=== PATIENT | female | born 1965 | race Caucasian/White ===

== ENCOUNTER → 2017-01-24 | Outpatient (CLI) | payer MEDICARE, OTHER ==
[~2017-01-24] MED LIST: ALPR1TAB2 PO; ATOR10TA PO; CYCL10TA2 PO; DULO20CA PO; GABA-586 PO; HYDR-965 PO; IOHEXOL 180 MG/ML 10 ML VIAL. ONE; NAPR220T70 PO; TAPE75TA3 PO; methylPREDNISolone ACETATE 40 MG/ML VIAL. ONE; methylPREDNISolone ACETATE 80 MG/ML VIAL. ONE
--- NOTE | 2017-01-25 04:30 | PAIN ---
DATE OF SERVICE: 01/24/2017 DIAGNOSIS: Lumbar radiculopathy with lumbar degenerative disk disease. HISTORY OF PRESENT ILLNESS: The patient, a 52-year-old female, returns for followup status post previous lumbar epidural steroid injection as well as thoracic epidural steroid injection, last seen in July. The patient reports that she did very well since that time, a near 100% improvement after her injections, but the pain is returning now over the past 6-8 months or so, worse over the past 2 months, increasing in the low back, bilateral hips and into the posterior left lateral thigh, posterior and lateral calf, medial calf, into the posterior ankle and foot on the left side. The patient reports it is worse with walking and standing, change in positions, about a 7 on a scale of 10 on average. Can be as low as 4, but it can be as high as a 9. The patient reports it is a 7 on a scale of 10 today. The patient reports no new motor or sensory deficits, no new bowel or bladder incontinence or other complaints. Describes the pain as aching and shooting, again worse with standing and walking, better with lying down. She is sleeping about 8 hours a night, unfortunately can awaken her from sleep but not every night. She usually can reposition and get back to sleep without too much difficulty. The patient has not had any recent physical therapies. She has been doing some pool therapy on her own and some stretching as well, which has been helpful also. The patient reports no bowel or bladder incontinence but significant fatigability of the left lower extremity with walking and standing, better with sitting and again better with lying down. PAST MEDICAL HISTORY: Significant for gastroesophageal reflux, osteoarthritis and smoking. PREVIOUS SURGERIES: Include right foot bunionectomy, right shoulder acromioplasty and hysterectomy. CURRENT MEDICATIONS: Cyclobenzaprine, Lipitor, Nucynta, Cymbalta and gabapentin. ALLERGIES: THE PATIENT IS ALLERGIC TO MELOXICAM. SOCIAL HISTORY: She is currently retired, smokes about 1 pack of cigarettes per day. Occasional alcohol intake only socially. REVIEW OF SYSTEMS: Updated and is positive for those items mentioned in the history of present illness. All systems were reviewed and otherwise negative and well documented on the patient's chart. PHYSICAL EXAMINATION: VITAL SIGNS: The patient's blood pressure is 144/92, pulse 83, respirations are 18, temperature is 98.2 degrees Fahrenheit, height is 5 feet 7 inches, weight is 196 pounds. GENERAL: The patient is awake, alert, oriented, appropriate, very pleasant demeanor. HEENT: Head shows normocephalic and atraumatic. Extraocular movements are intact and symmetrical. Oral cavity shows mucous membranes are moist and pink. Dentition is intact. NECK: Shows anterior throat supple without palpable lymphadenopathy noted. Swallow reflex is symmetrical. CHEST: Shows normal with inspection. Breath sounds are clear to auscultation bilaterally. HEART: Shows S1 and S2 clear. No murmurs auscultated. ABDOMEN: Soft, nontender, nondistended. No palpable organomegaly. No rebound or guarding demonstrated. BACK: Shows spine grossly midline. Normal-appearing cervical lordotic curvature, thoracic kyphotic curvature and lumbar lordotic curvature. No previous bruises, lesions, rashes or scars are noted. Lumbar paraspinous musculature shows symmetrical with inspection. On palpation, it shows a firm, tender musculature throughout the upper, middle and lower distribution of the paraspinous muscles bilaterally, worse in the low lumbar distribution and slightly more tender in the low lumbar distribution on the left than the right. The patient shows good rotation of motion, however, both laterally greater than 10 degrees right and left as well as extension greater than 10 degrees, forward flexion 45 degrees without difficulty. EXTREMITIES: Lower extremities show deep tendon reflexes at 2+ in the patellar, 1+ in the tendo calcaneus tendons and are equal. Motor exam is strong with dorsiflexion, extension, quadriceps and hamstring flexion rated at 5/5 and equal bilaterally. Peripheral pulses are 1+ posterior tibial and dorsalis pedis pulses. No peripheral edema is noted. No clubbing, no cyanosis. Lower extremities are warm and dry to touch and equal in color and appearance. Options were discussed with the patient. Again, the patient's old chart was reviewed as her current medication regimen updated. Current review of systems updated as noted, and we will proceed with a lumbar epidural steroid injection as she has done very well with these in the past with similar symptoms. Risks were again discussed including but not limited to bleeding, infection, possibility of epidural hematoma and subsequent neurological compromise, dural puncture, headaches, spinal cord and/or nerve damage, side effects of steroid medication and poor results regarding pain control. The patient understands and wishes to proceed. The patient will return to clinic in approximately 2 weeks for followup and was counseled on return appointment, activity level and side effects to be aware of. DIAGNOSIS: Lumbar radiculopathy with lumbar degenerative disk disease. PROCEDURES: Lumbar epidural steroid injection in translaminar approach at the L5-S1 level using a C-arm fluoroscopic guidance under sterile prep and drape using local anesthetic. Medication injected was total of 120 mg of Depo-Medrol plus 10 mL of preservative-free normal saline and 2 mL of Isovue contrast. CONDITION AT DISCHARGE: Stable. The patient tolerated the procedure well and had no complications. ALYSIA ALVAREZ MD DR: JEANETTE/jesenia JOB#: [id number] / [id number]
== END | disposition home or self-care (01) ==
LOC: PNCL 13:20
PROVIDERS: ATTEND Anesthesiology
DX: M51.16 Intervertebral disc disorders with radiculopathy, lumbar region (principal); K21.9 Gastro-esophageal reflux disease without esophagitis; M19.91 Primary osteoarthritis, unspecified site; F17.200 Nicotine dependence, unspecified, uncomplicated; Z88.6 Allergy status to analgesic agent; Z72.89 Other problems related to lifestyle
CPT/HCPCS: 62323; J1030; J1040

== ENCOUNTER → 2017-02-07 | Outpatient (CLI) | payer MEDICARE ==
[~2017-02-07] MED LIST changes: +ESOM40CA PO; +GABA-587 PO; +TAPE100T9 PO
--- NOTE | 2017-02-07 13:51 | PAIN ---
DATE OF SERVICE: 02/07/2017 DIAGNOSES: 1. Lumbar radiculopathy with lumbar degenerative disk disease. 2. Thoracic degenerative disk disease. 3. Cervical radiculopathy, cervical degenerative disease and cervical post-laminectomy syndrome. HISTORY OF PRESENT ILLNESS: The patient is a 52-year-old female who returns for followup status post lumbar epidural steroid injection x 1. The patient reports about 60% improvement overall, still some pain in the low back and left leg, but much improved, not going down the leg all the way at this time, it is just into the thigh and the calf, to a mild extent in the posterior knee. The patient reports it is 7 on a scale of 10 on average. It can be as high as an 8 or 9 but is 2-3 on a scale of 10 today. The patient reports it is returning now, becoming more constant with a cramping sensation, as aching and shooting in the left leg. Worse with activity, standing, walking; better with sitting or lying down. The patient reports she sleeps at night, is not having difficulty with this, only when she is up and around when she is having the pain for the most part. The patient reports no new motor or sensory deficits, no new bowel or bladder incontinence or other complaints. PHYSICAL EXAMINATION: VITAL SIGNS: Today the patient's blood pressure is 149/99, pulse 83, respirations 18, temperature 98.4 degrees Fahrenheit, height is 5 feet 7 inches, weighs 196 pounds. GENERAL: The patient is awake, alert, oriented, appropriate, very pleasant demeanor. HEENT: Head shows normocephalic, atraumatic. Extraocular movements are intact, symmetrical. Oral cavity: Mucous membranes moist and pink. Dentition is intact. NECK: Shows anterior throat supple without palpable lymphadenopathy noted. Swallow reflex is symmetrical. CHEST: Shows normal on inspection. Breath sounds clear to auscultation bilaterally. HEART: Shows S1 and S2 clear. ABDOMEN: Soft, nontender, nondistended. No palpable organomegaly. There is no rebound or guarding demonstrated. BACK: Shows spine grossly in midline with normal appearing thoracic kyphosis and lumbar lordotic curvature. The patient's lumbar paraspinous muscle shows some moderate tenderness with palpation bilaterally, but only diffusely without atrophy, hypertrophy. The patient shows good rotational motion of the lumbar spine, both laterally as well as extension and flexion. LOWER EXTREMITIES: Showed deep tendon reflexes 2+ in the patellar, 1+ tendo-calcaneus tendons and are equal. Motor exam is strong with 5/5 dorsiflexion, extension, quadriceps, hamstring flexion and symmetrical. Options were discussed with the patient and the patient's old chart was reviewed as her current medication regimen updated. Current review of systems updated today as well. We will proceed with a second lumbar epidural steroid injection today with fluoroscopic guidance. Risks were again discussed including, but not limited to bleeding, infection, possibility of epidural hematoma and subsequent neurologic compromise, dural puncture, headaches, spinal cord and/or nerve damage, side effects of steroid medication and poor results regarding pain control. The patient understands and wishes to proceed. The patient will return to clinic in approximately 2 weeks for followup. She was counseled on return appointment, activity level and side effects to be aware of. DIAGNOSES: Lumbar radiculopathy with lumbar degenerative disk disease. PROCEDURE: Lumbar epidural steroid injection in translaminar approach at the L5-S1 level using fluoroscopic guidance under sterile prep and drape using local anesthetic. MEDICATION INJECTED: A total of 120 mg of Depo-Medrol plus 10 mL of preservative-free normal saline and 2 mL Isovue for contrast. CONDITION AT DISCHARGE: Stable. The patient tolerated procedure well and had no complications. ALYSIA ALVAREZ MD DR: JEANETTE/jesenia JOB#: [id number] / [id number]
== END | disposition home or self-care (01) ==
LOC: PNCL 13:07
PROVIDERS: ATTEND Anesthesiology
DX: M51.16 Intervertebral disc disorders with radiculopathy, lumbar region (principal); M50.10 Cervical disc disorder with radiculopathy, unspecified cervical region; M96.1 Postlaminectomy syndrome, not elsewhere classified; M51.34 Other intervertebral disc degeneration, thoracic region; Z88.6 Allergy status to analgesic agent
CPT/HCPCS: 62323; J1030; J1040

== ENCOUNTER → 2017-02-21 | Outpatient (CLI) | payer MEDICARE ==
[~2017-02-21] MED LIST changes: +LIDOCAINE/PRILOCAINE TOPICAL CREAM 5GM TUBE. TP ONE
--- NOTE | 2017-02-21 12:17 | PAIN ---
DATE OF SERVICE: 02/21/2017 DIAGNOSES: 1. Lumbar radiculopathy with lumbar degenerative disk disease. 2. Thoracic radiculopathy. 3. Cervical radiculopathy with cervical degenerative disk disease. HISTORY OF PRESENT ILLNESS: The patient is a 52-year-old female who returns for followup status post lumbar epidural steroid injection x 2, last seen on 02/07/2017. The patient reports she did very well with about a 70% improvement in her low back and left lower extremity pain, but the pain is returning now only over the past few days, radiating, burning, cramping, aching, rated at 8 on a scale of 10 at all times, worst or the least. The patient reports it is worse with standing, walking, changing positions. She and her were remodeling a bathroom at home. This seems to have exacerbated the pain to some extent as she had been on her feet quite a bit during the remodeling. The patient reports she feels better with sitting down or lying down, sleeping 8 hours a night without disturbing her sleep. The patient reports no new motor or sensory deficits. No new bowel or bladder incontinence or other complaints. PHYSICAL EXAMINATION: VITAL SIGNS: Today, the patient's blood pressure 137/97, pulse 79, respirations are 18, temperature 97.4 degrees Fahrenheit, height is 5 feet 7 inches, weighs 196 pounds. GENERAL: The patient is awake, alert, oriented, appropriate, very pleasant demeanor. HEENT: Shows atraumatic and normocephalic. Extraocular movements are intact and symmetrical. Oral cavity shows mucous membranes are moist and pink. Dentition is intact. NECK: Shows anterior throat supple without palpable lymphadenopathy noted. Swallow reflex is symmetrical. CHEST: Shows normal on inspection. Breath sounds are clear to auscultation bilaterally. HEART: Shows S1 and S2 clear. No murmurs auscultated. ABDOMEN: Soft, nontender, nondistended. No palpable organomegaly is noted. BACK: Shows spine grossly midline. Cervical paraspinous musculature shows some mild tenderness with palpation, but only diffusely in the low cervical distribution and the superior medial trapezius, but full rotation and motion of the cervical spine without difficulty. Lumbar spine shows symmetrical on inspection. Palpation shows some mild tenderness in the lumbar paraspinous musculature bilaterally, but only diffusely without radiation. The patient has good rotation and motion of the lumbar spine, both laterally greater than 10 degrees right and left as well as extension greater than 10 degrees, forward flexion 45 degrees without pain reported. No tenderness over the sacrum or sacroiliac regions. EXTREMITIES: Lower extremities show deep tendon reflexes 2+ in the patellar, 1+ tendo calcaneus tendons, are equal. Motor exam is strong with 5/5 dorsiflexion, extension, quadriceps and hamstring flexion and are symmetrical. Peripheral pulses are 1+ posterior tibial. No peripheral edema is noted. Options were discussed with the patient. The patient's old chart was reviewed as her current medication regimen and updated. Current review of systems updated today as well. We will proceed with third in the series of lumbar epidural steroid injection with fluoroscopic guidance. Risks were again discussed including, but not limited to bleeding, infection, possibility of epidural hematoma, subsequent neurologic compromise, dural punctures, headaches, spinal cord and/or nerve damage, side effects of steroid medication and poor results regarding pain control. The patient understands and wished to proceed. The patient will return to clinic in approximately 2 weeks for followup, was counseled on return appointment, activity level and side effects to be aware of. DIAGNOSIS: Lumbar radiculopathy with lumbar degenerative disk disease. PROCEDURE: Lumbar epidural steroid injection, translaminar approach at L5-S1 level using C-arm fluoroscopic guidance under sterile prep and drape using local anesthetic. Medication injected is a total of 120 mg Depo-Medrol plus 10 mL of preservative-free normal saline, 2 mL of Isovue for contrast. CONDITION ON DISCHARGE: Stable. The patient tolerated the procedure well, had no complications. ALYSIA ALVAREZ MD DR: JEANETTE/jesenia JOB#: [id number] / [id number]
== END | disposition home or self-care (01) ==
LOC: PNCL 11:15
PROVIDERS: ATTEND Anesthesiology
DX: M51.16 Intervertebral disc disorders with radiculopathy, lumbar region (principal); M50.10 Cervical disc disorder with radiculopathy, unspecified cervical region; M54.14 Radiculopathy, thoracic region; Z88.6 Allergy status to analgesic agent
CPT/HCPCS: 62323; J1030; J1040

== ENCOUNTER → 2017-04-09 | Outpatient (CLI) | payer MEDICARE ==
[~2017-04-09] MED LIST changes: -IOHEXOL 180 MG/ML 10 ML VIAL. ONE; -LIDOCAINE/PRILOCAINE TOPICAL CREAM 5GM TUBE. TP ONE; -methylPREDNISolone ACETATE 40 MG/ML VIAL. ONE; -methylPREDNISolone ACETATE 80 MG/ML VIAL. ONE
--- NOTE | 2017-04-10 08:35 | KCIC ---
EXAMINATION: Magnetic resonance imaging (MRI) of the lumbar spine without contrast HISTORY: Left lumbar radiculopathy TECHNIQUE: Multiplanar multi-weighted MRI of the lumbar spine was performed without intravenous contrast using the standard lumbar spine protocol. Contrast information: None administered COMPARISON: None available. FINDINGS: There is minimal anterolisthesis of L4 and L5. Vertebral bodies demonstrate normal signal intensity on all sequences. There are no compression fractures. The conus medullaris terminates at the level of L1. The distal spinal cord signal intensity is normal. There is disc desiccation at L4-L5 and L5-S1. There is disc height loss at L5-S1. Limited views of the abdomen and pelvis show no soft tissue abnormality. The aorta is normal. L2-L3: The disc is normal in configuration. There is mild facet arthropathy. There is no neuroforaminal stenosis. There is no spinal canal stenosis. L3-L4: The disc is normal in configuration. There is mild to moderate facet arthropathy. There is no neuroforaminal stenosis. There is no spinal canal stenosis. L4-L5: There is a mild circumferential disc bulge. There is severe facet arthropathy with ligamentum flavum infolding. There is a 10 x 8 mm synovial cyst projecting anteriorly from the left facet joint. There is nodular infolding of ligamentum flavum on the left which results in deformity of the thecal sac along the left lateral margin as well as severe left lateral recess stenosis, impinging the traversing left L5 nerve. There is moderate neuroforaminal stenosis. There is severe spinal canal stenosis. L5-S1: There is a small central disc protrusion. There is moderate facet arthropathy. There is [id number] left neuroforaminal stenosis. There is no spinal canal stenosis. IMPRESSION: There is mild circumferential disc bulge at L4-L5 along with severe facet arthropathy and ligamentum flavum infolding. There is a 10 x 8 mm synovial cyst arising from the left facet joint which projects anteriorly and medially. Constellation of findings along with nodular infolding of the ligamentum flavum on the left results in severe left lateral recess stenosis, impinging on the left L5 nerve. Findings result in severe spinal canal stenosis. Electronically signed by: Mamta Healy MD (04/10/2017 8:32 AM) [id number]
== END | disposition home or self-care (01) ==
LOC: KCIC MRI 17:19
PROVIDERS: ATTEND Anesthesiology
DX: M54.16 Radiculopathy, lumbar region (principal); M48.061 Spinal stenosis, lumbar region without neurogenic claudication; Z88.6 Allergy status to analgesic agent
CPT/HCPCS: 72148

== ENCOUNTER → 2017-05-02 | Outpatient (CLI) | payer MEDICARE | END | disposition home or self-care (01) | LOC: KCIC 11:03 | DX: M43.16 Spondylolisthesis, lumbar region (principal); M51.37 Other intervertebral disc degeneration, lumbosacral region; M79.605 Pain in left leg; R53.1 Weakness | CPT/HCPCS: 72100 ==

== ENCOUNTER → 2017-05-28 | Outpatient (CLI) | payer MEDICARE ==
[2017-05-28 14:40] LABS: ADD MAN DIFF? NO
[2017-05-28 14:42] LABS: BASO % 1 % (0-3); EOS # 0.1 x10^3/uL (0.0-0.7); EOS % 2 % (0-3); HEMOGLOBIN 13.1 g/dL (12.0-15.5); LYMPH # 1.8 x10^3/uL (1.0-4.8); LYMPH % 27 % (24-48); MEAN CORPUSCULAR HEMOGLOBIN 29 pg (25-35); MEAN CORPUSCULAR HGB CONC 33 g/dL (31-37); MEAN CORPUSCULAR VOLUME 88 fL (79-100); MONO # 0.5 x10^3/uL (0.0-1.1); MONO % 7 % (0-9); NEUT # 4.3 x10^3uL (1.8-7.7); NEUT % 64 % (31-73); PLATELET COUNT 200 x10^3/uL (140-400); RED BLOOD COUNT 4.56 x10^6/uL (3.50-5.40); RED CELL DISTRIBUTION WIDTH 13.6 % (11.5-14.5); WHITE BLOOD COUNT 6.6 x10^3/uL (4.0-11.0)
[2017-05-28 15:07] LABS: ALBUMIN 4.3 g/dL (3.4-5.0); ALBUMIN/GLOBULIN RATIO 1.4 (1.0-1.7); ALK PHOS 59 U/L (46-116); ALT (SGPT) 27 U/L (14-59); ANION GAP 9 (6-14); AST (SGOT) 18 U/L (15-37); BLOOD UREA NITROGEN 21 mg/dL (7-20); BUN/CREATININE RATIO 30 (6-20); CALCIUM 9.6 mg/dL (8.5-10.1); CARBON DIOXIDE 26 mmol/L (21-32); CHLORIDE 104 mmol/L (98-107); CREATININE 0.7 mg/dL (0.6-1.0); GFR 87.2; GLUCOSE 97 mg/dL (70-99); SODIUM 139 mmol/L (136-145); TOTAL BILIRUBIN 0.3 mg/dL (0.2-1.0); TOTAL PROTEIN 7.4 g/dL (6.4-8.2)
[2017-05-29 00:12] LABS: MRSA BY PCR Negative (Negative)
== END | disposition home or self-care (01) ==
LOC: SURGPAT 13:32
DX: Z01.818 Encounter for other preprocedural examination (principal); M48.061 Spinal stenosis, lumbar region without neurogenic claudication; M71.38 Other bursal cyst, other site
CPT/HCPCS: 36415; 80053; 85025; 87641

== ENCOUNTER 2017-06-06 10:26 | Day surgery (SDC) | payer MEDICARE ==
[~2017-06-06 10:26] MED LIST changes: +0.9 % SODIUM CHLORIDE 50 ML VIAL. IJ; -ALPR1TAB2 PO; -ATOR10TA PO; -CYCL10TA2 PO; +DESFLURANE > 120 MINUTES IH; +DEXAMETHASONE SOD PHOS 20 MG/5 ML VIAL.; -DULO20CA PO; -ESOM40CA PO; -GABA-586 PO; -GABA-587 PO; +GLYCOPYRROLATE 1 MG/5 ML VIAL.; -HYDR-965 PO; +HYDROmorphone 2 MG/ML VIAL IV; +LIDOCAINE 1% PF 2 ML VIAL. ID; +LIDOCAINE 2% PF Vial for OR 5 ML VIAL.; +MIDAZOLAM HCL/PF 2 MG/2 ML VIAL.; +MINERAL OIL/PETROLATUM,WHITE OPHTH OINT 3.5GM TUBE.; +MORPHINE SULFATE 2 MG/ML DISP.SYRIN. IV; -NAPR220T70 PO; +NEOSTIGMINE METHYLSULFATE 5 MG/5 ML SYRINGE.; +ONDANSETRON PF 4 MG/2 ML VIAL.; +ONDANSETRON PF 4 MG/2 ML VIAL. IV; +PHENYLEPHRINE 10 MG/ML VIAL.; +PROCHLORPERAZINE 10 MG/2 ML VIAL. IV; +PROPOFOL 20 ML IV; +PROPOFOL 50 ML IV; +REMIFENTANIL 2 MG VIAL. IV; +ROCURONIUM 50 MG/5 ML VIAL.; -TAPE100T9 PO; -TAPE75TA3 PO; +fentaNYL PF VIAL 100 MCG/2 ML VIAL; +fentaNYL PF VIAL 100 MCG/2 ML VIAL IV
[2017-06-06] MEDS: IV RINGERS,LACTATED 1000ML 1,000 ML IV ×3 (10:54)
[2017-06-06] MEDS: GELATIN SPONGE SIZE 100. ×3 (12:49)
[2017-06-06] MEDS: THROMBIN TOPICAL 20,000 UNIT SPRAY.SYRN KIT TP ×3 (12:49)
[2017-06-06] MEDS: BACITRACIN 50,000 UNIT in IV NORMAL SALINE 1000ML BAG 1,000 ML IRR ×3 (12:49)
[2017-06-06] MEDS: KETOROLAC 60 MG/2 ML INJ FOR OR. ×3 (12:49)
[2017-06-06] MEDS: BUPIVAC MPF-EPI 0.75%-1:200000 30 ML VIAL. ×3 (12:49)
[2017-06-06] MEDS ORDERED: PROPOFOL 50 ML IV ×3 (13:00)
== END 2017-06-06 16:32 | disposition home or self-care (01) ==
LOC: OPSVCIP 10:26 → SURG 15:40
DX: M71.38 Other bursal cyst, other site (principal); M48.061 Spinal stenosis, lumbar region without neurogenic claudication; M54.16 Radiculopathy, lumbar region; E78.00 Pure hypercholesterolemia, unspecified; K21.9 Gastro-esophageal reflux disease without esophagitis; M19.90 Unspecified osteoarthritis, unspecified site; F41.9 Anxiety disorder, unspecified; F32.9 Major depressive disorder, single episode, unspecified; Z86.69 Personal history of other diseases of the nervous system and sense organs; Z72.89 Other problems related to lifestyle; Z90.710 Acquired absence of both cervix and uterus; Z87.891 Personal history of nicotine dependence; Z88.6 Allergy status to analgesic agent
CPT/HCPCS: 63267; 76000; 88304; 88311; 97161-GP; J0690; J1100; J1885; J2250; J2405; J2704; J2710; J3010; J3490; J7030; J7120